=== PATIENT | male | born 1950 | race Caucasian/White ===

== ENCOUNTER 2017-08-02 08:06 | Outpatient (CLI) | payer MEDICARE, SELFPAY | END 2017-08-02 11:36 | PROVIDERS: Family Provider Internal Medicine Adolescent Medicine; Visit Provider Internal Medicine Adolescent Medicine | DX: Z79.01 Long term (current) use of anticoagulants (principal); Z86.718 Personal history of other venous thrombosis and embolism; Z51.81 Encounter for therapeutic drug level monitoring | CPT/HCPCS: 85610; 99211; G0463 ==

== ENCOUNTER 2017-08-23 08:02 | Outpatient (CLI) | payer MEDICARE, SELFPAY ==
[2017-08-23 13:56] LABS: PHA INR Fingerstick 1.7 (0.9-1.1)
== END 2017-08-23 13:59 | disposition home or self-care (01) ==
PROVIDERS: Family Provider Internal Medicine Adolescent Medicine; PCP Internal Medicine Adolescent Medicine; Visit Provider Internal Medicine Adolescent Medicine
DX: Z79.01 Long term (current) use of anticoagulants (principal); Z86.718 Personal history of other venous thrombosis and embolism; Z51.81 Encounter for therapeutic drug level monitoring
CPT/HCPCS: 85610

== ENCOUNTER → 2017-09-11 08:16 | Outpatient (CLI) | payer MEDICARE, SELFPAY ==
[2017-09-11 17:07] LABS: PHA INR Fingerstick 1.9 (0.9-1.1)
== END | disposition home or self-care (01) ==
PROVIDERS: PCP Internal Medicine Adolescent Medicine; Visit Provider Internal Medicine Adolescent Medicine
DX: Z79.01 Long term (current) use of anticoagulants (principal); Z51.81 Encounter for therapeutic drug level monitoring
CPT/HCPCS: 85610; 99211; G0463

== ENCOUNTER → 2017-09-30 08:17 | Outpatient (CLI) | payer MEDICARE, SELFPAY | PROVIDERS: Family Provider Internal Medicine Adolescent Medicine; PCP Internal Medicine Adolescent Medicine; Visit Provider Internal Medicine Adolescent Medicine | DX: Z79.01 Long term (current) use of anticoagulants (principal); Z51.81 Encounter for therapeutic drug level monitoring; Z86.718 Personal history of other venous thrombosis and embolism | CPT/HCPCS: 85610 ==

== ENCOUNTER 2017-10-21 08:14 | Outpatient (CLI) | payer MEDICARE, SELFPAY ==
[2017-10-21 11:51] LABS: PHA INR Fingerstick 1.4 (0.9-1.1)
== END 2017-10-21 12:01 | disposition home or self-care (01) ==
LOC: ACC 08:15
PROVIDERS: PCP Internal Medicine Adolescent Medicine; Visit Provider Internal Medicine Adolescent Medicine
DX: Z79.01 Long term (current) use of anticoagulants (principal); Z51.81 Encounter for therapeutic drug level monitoring; Z86.718 Personal history of other venous thrombosis and embolism
CPT/HCPCS: 85610; 99211; G0463

== ENCOUNTER 2017-11-04 10:28 | Outpatient (CLI) | payer MEDICARE, SELFPAY ==
[2017-11-04 11:12] LABS: PHA INR Fingerstick 1.3 (0.9-1.1)
== END 2017-11-04 11:16 | disposition home or self-care (01) ==
LOC: ACC 10:29
PROVIDERS: PCP Internal Medicine Adolescent Medicine; Visit Provider Internal Medicine Adolescent Medicine
DX: Z79.01 Long term (current) use of anticoagulants (principal); Z51.81 Encounter for therapeutic drug level monitoring
CPT/HCPCS: 85610; 99211; G0463

== ENCOUNTER 2017-11-11 08:32 | Outpatient (CLI) | payer MEDICARE, SELFPAY ==
[2017-11-11 09:33] LABS: INR 1.24 (0.9-1.1); Prothrombin Time 13.4 seconds (9.4-11.8)
[2017-11-11 10:34] LABS: PHA INR Fingerstick 1.4 (0.9-1.1)
== END 2017-11-11 14:45 | disposition home or self-care (01) ==
LOC: ACC 08:33
PROVIDERS: Family Provider Internal Medicine Adolescent Medicine; PCP Internal Medicine Adolescent Medicine; Visit Provider Internal Medicine Adolescent Medicine
DX: Z79.01 Long term (current) use of anticoagulants (principal); Z51.81 Encounter for therapeutic drug level monitoring; Z86.718 Personal history of other venous thrombosis and embolism
CPT/HCPCS: 36415; 85610; 99211; G0463

== ENCOUNTER 2017-11-18 08:14 | Outpatient (CLI) | payer MEDICARE, SELFPAY ==
[2017-11-18 15:45] LABS: PHA INR Fingerstick 1.3 (0.9-1.1)
== END 2017-11-18 15:47 | disposition home or self-care (01) ==
LOC: ACC 08:15
PROVIDERS: PCP Internal Medicine Adolescent Medicine; Visit Provider Internal Medicine Adolescent Medicine
DX: Z79.01 Long term (current) use of anticoagulants (principal); Z51.81 Encounter for therapeutic drug level monitoring; Z86.718 Personal history of other venous thrombosis and embolism
CPT/HCPCS: 85610; 99211; G0463

== ENCOUNTER 2017-11-26 07:59 | Outpatient (CLI) | payer MEDICARE, SELFPAY ==
[2017-11-26 14:26] LABS: PHA INR Fingerstick 1.4 (0.9-1.1)
== END 2017-11-26 14:36 | disposition home or self-care (01) ==
LOC: ACC 08:00
PROVIDERS: PCP Internal Medicine Adolescent Medicine; Visit Provider Internal Medicine Adolescent Medicine
DX: Z79.01 Long term (current) use of anticoagulants (principal); Z51.81 Encounter for therapeutic drug level monitoring; Z86.718 Personal history of other venous thrombosis and embolism
CPT/HCPCS: 85610; 99211; G0463

== ENCOUNTER 2017-12-03 14:39 | Outpatient (CLI) | payer MEDICARE, SELFPAY ==
[2017-12-03 15:30] LABS: PHA INR Fingerstick 1.6 (0.9-1.1)
== END 2017-12-03 15:32 | disposition home or self-care (01) ==
LOC: ACC 14:41
PROVIDERS: Family Provider Internal Medicine Adolescent Medicine; PCP Internal Medicine Adolescent Medicine; Visit Provider Internal Medicine Adolescent Medicine
DX: Z79.01 Long term (current) use of anticoagulants (principal); Z51.81 Encounter for therapeutic drug level monitoring; Z86.718 Personal history of other venous thrombosis and embolism
CPT/HCPCS: 85610; 99211; G0463

== ENCOUNTER 2017-12-13 08:08 | Outpatient (CLI) | payer MEDICARE, SELFPAY ==
[2017-12-13 16:16] LABS: PHA INR Fingerstick 1.9 (0.9-1.1)
== END 2017-12-13 16:29 | disposition home or self-care (01) ==
LOC: ACC 08:08
PROVIDERS: Family Provider Internal Medicine Adolescent Medicine; PCP Internal Medicine Adolescent Medicine; Visit Provider Internal Medicine Adolescent Medicine
DX: Z79.01 Long term (current) use of anticoagulants (principal); Z51.81 Encounter for therapeutic drug level monitoring; Z86.718 Personal history of other venous thrombosis and embolism
CPT/HCPCS: 85610; 99211; G0463

== ENCOUNTER 2017-12-24 08:04 | Outpatient (CLI) | payer MEDICARE, SELFPAY ==
[2017-12-24 14:47] LABS: PHA INR Fingerstick 2.7 (0.9-1.1)
== END 2017-12-24 14:52 | disposition home or self-care (01) ==
LOC: ACC 08:05
PROVIDERS: Family Provider Internal Medicine Adolescent Medicine; PCP Internal Medicine Adolescent Medicine; Visit Provider Internal Medicine Adolescent Medicine
DX: Z79.01 Long term (current) use of anticoagulants (principal); Z51.81 Encounter for therapeutic drug level monitoring; Z86.718 Personal history of other venous thrombosis and embolism
CPT/HCPCS: 85610; 99211; G0463

== ENCOUNTER 2018-01-02 08:31 | Outpatient (CLI) | payer MEDICARE, SELFPAY ==
[2018-01-02 13:31] LABS: PHA INR Fingerstick 2.3 (0.9-1.1)
== END 2018-01-02 13:33 | disposition home or self-care (01) ==
LOC: ACC 08:32
PROVIDERS: PCP Internal Medicine Adolescent Medicine; Visit Provider Internal Medicine Adolescent Medicine
DX: Z79.01 Long term (current) use of anticoagulants (principal); Z51.81 Encounter for therapeutic drug level monitoring; Z86.718 Personal history of other venous thrombosis and embolism
CPT/HCPCS: 85610; 99211; G0463

== ENCOUNTER 2018-01-20 07:49 | Outpatient (CLI) | payer MEDICARE, SELFPAY ==
[2018-01-20 10:21] LABS: PHA INR Fingerstick 2.3 (0.9-1.1)
== END 2018-01-20 10:33 | disposition home or self-care (01) ==
LOC: ACC 07:50
PROVIDERS: PCP Internal Medicine Adolescent Medicine; Visit Provider Internal Medicine Adolescent Medicine
DX: Z79.01 Long term (current) use of anticoagulants (principal); Z86.718 Personal history of other venous thrombosis and embolism
CPT/HCPCS: 85610; 99211; G0463

== ENCOUNTER 2018-02-17 08:04 | Outpatient (CLI) | payer MEDICARE, SELFPAY ==
[2018-02-17 15:08] LABS: PHA INR Fingerstick 2.1 (0.9-1.1)
== END 2018-02-17 15:45 | disposition home or self-care (01) ==
LOC: ACC 08:05
PROVIDERS: PCP Internal Medicine Adolescent Medicine; Visit Provider Internal Medicine Adolescent Medicine
DX: Z79.01 Long term (current) use of anticoagulants (principal); Z51.81 Encounter for therapeutic drug level monitoring; Z86.718 Personal history of other venous thrombosis and embolism
CPT/HCPCS: 85610; 99211; G0463

== ENCOUNTER 2018-03-31 08:02 | Outpatient (CLI) | payer MEDICARE, SELFPAY | END 2018-03-31 09:35 | disposition home or self-care (01) | LOC: ACC 08:03 | PROVIDERS: Family Provider Internal Medicine Adolescent Medicine; PCP Internal Medicine Adolescent Medicine; Visit Provider Internal Medicine Adolescent Medicine | DX: Z79.01 Long term (current) use of anticoagulants (principal); Z86.718 Personal history of other venous thrombosis and embolism | CPT/HCPCS: 85610; 99211; G0463 ==

== ENCOUNTER 2018-05-12 07:56 | Outpatient (CLI) | payer MEDICARE, SELFPAY ==
[2018-05-12 11:28] LABS: PHA INR Fingerstick 2.4 (0.9-1.1)
== END 2018-05-12 11:31 | disposition home or self-care (01) ==
LOC: ACC 07:56
PROVIDERS: Family Provider Internal Medicine Adolescent Medicine; PCP Internal Medicine Adolescent Medicine; Visit Provider Internal Medicine Adolescent Medicine
DX: Z51.81 Encounter for therapeutic drug level monitoring (principal); Z79.01 Long term (current) use of anticoagulants; Z86.718 Personal history of other venous thrombosis and embolism
CPT/HCPCS: 85610; 99211; G0463

== ENCOUNTER 2018-06-23 08:01 | Outpatient (CLI) | payer MEDICARE, SELFPAY ==
[2018-06-23 15:30] LABS: PHA INR Fingerstick 2.4 (0.9-1.1)
== END 2018-06-23 15:34 | disposition home or self-care (01) ==
LOC: ACC 08:01
PROVIDERS: PCP Internal Medicine Adolescent Medicine; Visit Provider Internal Medicine Adolescent Medicine
DX: Z51.81 Encounter for therapeutic drug level monitoring (principal); Z79.01 Long term (current) use of anticoagulants; Z86.718 Personal history of other venous thrombosis and embolism
CPT/HCPCS: 85610; 99211; G0463

== ENCOUNTER 2018-07-31 07:57 | Outpatient (CLI) | payer MEDICARE, SELFPAY ==
[2018-07-31 14:32] LABS: PHA INR Fingerstick 2.1 (0.9-1.1)
== END 2018-07-31 14:34 | disposition home or self-care (01) ==
PROVIDERS: PCP Internal Medicine Adolescent Medicine; Visit Provider Internal Medicine Adolescent Medicine
DX: Z79.01 Long term (current) use of anticoagulants (principal); Z86.718 Personal history of other venous thrombosis and embolism
CPT/HCPCS: 85610; 99211; G0463

== ENCOUNTER 2018-09-08 07:57 | Outpatient (CLI) | payer MEDICARE, SELFPAY ==
[2018-09-08 16:41] LABS: PHA INR Fingerstick 1.7 (0.9-1.1)
== END 2018-09-08 16:51 | disposition home or self-care (01) ==
PROVIDERS: PCP Internal Medicine Adolescent Medicine; Visit Provider Internal Medicine Adolescent Medicine
DX: Z51.81 Encounter for therapeutic drug level monitoring (principal); Z79.01 Long term (current) use of anticoagulants; Z86.718 Personal history of other venous thrombosis and embolism
CPT/HCPCS: 85610; 99211; G0463

== ENCOUNTER 2018-10-06 07:57 | Outpatient (CLI) | payer MEDICARE, SELFPAY | END 2018-10-06 12:52 | disposition home or self-care (01) | LOC: ACC 07:57 | PROVIDERS: PCP Internal Medicine Adolescent Medicine; Visit Provider Internal Medicine Adolescent Medicine | DX: Z51.81 Encounter for therapeutic drug level monitoring (principal); Z79.01 Long term (current) use of anticoagulants; Z86.718 Personal history of other venous thrombosis and embolism | CPT/HCPCS: 85610; 99211; G0463 ==

== ENCOUNTER 2018-11-17 07:54 | Outpatient (CLI) | payer MEDICARE, SELFPAY | END 2018-11-17 15:00 | disposition home or self-care (01) | LOC: ACC 07:54 | PROVIDERS: PCP Internal Medicine Adolescent Medicine; Visit Provider Internal Medicine Adolescent Medicine | DX: Z51.81 Encounter for therapeutic drug level monitoring (principal); Z79.01 Long term (current) use of anticoagulants; Z86.718 Personal history of other venous thrombosis and embolism | CPT/HCPCS: 99211; G0463 ==

== ENCOUNTER 2018-12-29 08:01 | Outpatient (CLI) | payer MEDICARE, SELFPAY | END 2018-12-29 11:01 | disposition home or self-care (01) | LOC: ACC 08:04 | PROVIDERS: PCP Internal Medicine Adolescent Medicine; Visit Provider Internal Medicine Adolescent Medicine | DX: Z51.81 Encounter for therapeutic drug level monitoring (principal); Z79.01 Long term (current) use of anticoagulants | CPT/HCPCS: 99211; G0463 ==

== ENCOUNTER 2019-01-12 07:53 | Outpatient (CLI) | payer MEDICARE, SELFPAY ==
[2019-01-12 10:35] LABS: PHA INR Fingerstick 2.1 (0.9-1.1)
== END 2019-01-12 11:57 | disposition home or self-care (01) ==
LOC: ACC 07:54
PROVIDERS: PCP Internal Medicine Adolescent Medicine; Visit Provider Internal Medicine Adolescent Medicine
DX: Z51.81 Encounter for therapeutic drug level monitoring (principal); Z79.01 Long term (current) use of anticoagulants; Z86.718 Personal history of other venous thrombosis and embolism
CPT/HCPCS: 85610; 99211; G0463

== ENCOUNTER 2019-03-03 08:23 | Outpatient (CLI) | payer MEDICARE, SELFPAY ==
[2019-03-03 09:19] LABS: PHA INR Fingerstick 1.7 (0.9-1.1)
== END 2019-03-03 09:24 | disposition home or self-care (01) ==
LOC: ACC 08:24
PROVIDERS: PCP Internal Medicine Adolescent Medicine; Visit Provider Internal Medicine Adolescent Medicine
DX: Z51.11 Encounter for antineoplastic chemotherapy (principal); Z79.01 Long term (current) use of anticoagulants; Z86.718 Personal history of other venous thrombosis and embolism
CPT/HCPCS: 85610; 99211; G0463

== ENCOUNTER 2019-03-23 08:02 | Outpatient (CLI) | payer MEDICARE, SELFPAY ==
[2019-03-23 10:44] LABS: PHA INR Fingerstick 1.9 (0.9-1.1)
== END 2019-03-23 10:46 | disposition home or self-care (01) ==
LOC: ACC 08:03
PROVIDERS: PCP Internal Medicine Adolescent Medicine; Visit Provider Internal Medicine Adolescent Medicine
DX: Z51.81 Encounter for therapeutic drug level monitoring (principal); Z79.01 Long term (current) use of anticoagulants
CPT/HCPCS: 85610; 99211; G0463

== ENCOUNTER 2019-04-23 07:54 | Outpatient (CLI) | payer MEDICARE, SELFPAY ==
[2019-04-23 10:29] LABS: PHA INR Fingerstick 2.1 (0.9-1.1)
== END 2019-04-23 10:30 | disposition home or self-care (01) ==
LOC: ACC 07:55
PROVIDERS: PCP Internal Medicine Adolescent Medicine; Visit Provider Internal Medicine Adolescent Medicine
DX: Z51.81 Encounter for therapeutic drug level monitoring (principal); Z79.01 Long term (current) use of anticoagulants; Z86.718 Personal history of other venous thrombosis and embolism
CPT/HCPCS: 85610; 99211; G0463

== ENCOUNTER 2019-05-21 08:12 | Outpatient (CLI) | payer MEDICARE, SELFPAY ==
[2019-05-21 11:57] LABS: PHA INR Fingerstick 2.4 (0.9-1.1)
== END 2019-05-21 14:14 | disposition home or self-care (01) ==
PROVIDERS: PCP Internal Medicine Adolescent Medicine; Visit Provider Internal Medicine Adolescent Medicine
DX: Z51.81 Encounter for therapeutic drug level monitoring (principal); Z79.01 Long term (current) use of anticoagulants; Z86.718 Personal history of other venous thrombosis and embolism
CPT/HCPCS: 85610; 99211; G0463

== ENCOUNTER 2019-07-03 14:30 | Outpatient (CLI) | payer MEDICARE, SELFPAY ==
[2019-07-03 15:16] LABS: PHA INR Fingerstick 2.1 (0.9-1.1)
== END 2019-07-03 15:21 | disposition home or self-care (01) ==
LOC: ACC 14:32
PROVIDERS: PCP Internal Medicine Adolescent Medicine; Visit Provider Internal Medicine Adolescent Medicine
DX: Z51.81 Encounter for therapeutic drug level monitoring (principal); Z79.01 Long term (current) use of anticoagulants
CPT/HCPCS: 85610; 99211; G0463

== ENCOUNTER 2019-08-28 08:31 | Outpatient (CLI) | payer MEDICARE, SELFPAY ==
[2019-08-28 11:23] LABS: PHA INR Fingerstick 2.1 (0.9-1.1)
== END 2019-08-28 12:01 | disposition home or self-care (01) ==
LOC: ACC 08:32
PROVIDERS: PCP Internal Medicine Adolescent Medicine; Visit Provider Internal Medicine Adolescent Medicine
DX: Z51.81 Encounter for therapeutic drug level monitoring (principal); Z79.01 Long term (current) use of anticoagulants
CPT/HCPCS: 85610; 99211; G0463

== ENCOUNTER → 2019-10-09 08:04 | Outpatient (CLI) | payer MEDICARE, SELFPAY ==
[2019-10-09 09:12] LABS: Basophils % 0.9 % (0.1-2.0); Eosinophils # 0.1 K/mm3 (0.0-0.4); Eosinophils % 3.1 % (0.1-12.0); Hematocrit 47.9 % (42.0-52.0); Hemoglobin 15.9 g/dL (14.1-18.0); Lymphocytes # 1.5 K/mm3 (0.7-4.5); Lymphocytes % 33.5 % (10-50); Mean Corpuscular HGB Conc 33.2 g/dL (31.8-35.4); Mean Corpuscular Hemoglobin 32.5 pg (27.0-31.2); Mean Platelet Volume 7.7 fl (7.4-10.4); Monocytes # 0.3 K/mm3 (0.1-1.0); Monocytes % 6.2 % (1.7-9.3); Neutrophils # 2.6 K/mm3 (1.8-7.8); Neutrophils % 56.4 % (37.0-80.0); Platelet Count 204 K/mm3 (142-424); Red Blood Count 4.89 M/mm3 (4.60-6.20); White Blood Count 4.6 K/mm3 (4.8-10.8)
[2019-10-09 09:23] LABS: INR 1.98 (0.9-1.1); Prothrombin Time 19.9 seconds (9.4-11.8)
[2019-10-09 10:47] LABS: Alanine Aminotransferase 34 U/L (12-78); Albumin Level 4.2 g/dl (3.5-5.0); Albumin/Globulin Ratio 1.7 (1.1-1.8); Alkaline Phosphatase 67 U/L (38-126); Anion Gap 11.4 mEq/L (5-15); Aspartate Amino Transferase 37 U/L (17-59); Bilirubin,Total 0.5 mg/dl (0.2-1.3); Blood Urea Nitrogen 11 mg/dl (9-20); Calcium 9.4 mg/dl (8.4-10.2); Carbon Dioxide 30 mmol/L (22.0-30.0); Chloride 101 mmol/L (98-107); Chol/HDL Ratio 3.1 (1-3.5); Cholesterol 125 mg/dl (140-200); Estimated Glomerular Filt Rate 112 ml/min (>60); GFR (African American) 135 ML/MIN (>60); Globulin 2.5 g/dL (1.3-3.2); Glucose 144 mg/dl (74-100); HDL Cholesterol 40 mg/dl (40-60); Potassium 4.4 mmoL/L (3.5-5.1); Sodium 138 mmol/L (136-145); Total Protein,Serum 6.7 g/dl (6.3-8.2); Triglycerides 131 mg/dl (30-150); VLDL Cholesterol 26 mg/dL (0-40)
[2019-10-09 10:57] LABS: Direct LDL Cholesterol 73.12 mg/dL (100-129)
[2019-10-09 11:18] LABS: Prostate Specific Ag, Diagnost 4.34 ng/ml (0.0-4.0)
== END ==
PROVIDERS: PCP Internal Medicine Adolescent Medicine; Visit Provider Internal Medicine Adolescent Medicine
DX: E78.5 Hyperlipidemia, unspecified (principal); I48.20 Chronic atrial fibrillation, unspecified; N40.1 Benign prostatic hyperplasia with lower urinary tract symptoms; Z51.81 Encounter for therapeutic drug level monitoring; Z79.01 Long term (current) use of anticoagulants
CPT/HCPCS: 36415; 80053; 80061; 84153; 85025; 85610

== ENCOUNTER → 2019-10-21 08:21 | Outpatient (CLI) | payer MEDICARE, SELFPAY ==
[2019-10-21 11:17] LABS: Hemoglobin A1C 6.9 % (4.0-6.0)
== END ==
PROVIDERS: Visit Provider Internal Medicine Adolescent Medicine
DX: R73.9 Hyperglycemia, unspecified (principal)
CPT/HCPCS: 36415; 83036

== ENCOUNTER 2019-12-04 14:54 | Outpatient (CLI) | payer MEDICARE, SELFPAY ==
[2019-12-04 15:46] LABS: PHA INR Fingerstick 2.8 (0.9-1.1)
== END 2019-12-04 15:49 | disposition home or self-care (01) ==
LOC: ACC 14:56
PROVIDERS: PCP Internal Medicine Adolescent Medicine; Visit Provider Internal Medicine Adolescent Medicine
DX: Z51.81 Encounter for therapeutic drug level monitoring (principal); Z79.01 Long term (current) use of anticoagulants
CPT/HCPCS: 85610; 99211; G0463

== ENCOUNTER 2020-02-02 13:04 | Outpatient (CLI) | payer MEDICARE, SELFPAY ==
[2020-02-02 15:00] LABS: PHA INR Fingerstick 2.7 (0.9-1.1)
== END 2020-02-02 15:02 | disposition home or self-care (01) ==
LOC: ACC 13:05
PROVIDERS: PCP Internal Medicine Adolescent Medicine; Visit Provider Internal Medicine Adolescent Medicine
DX: Z79.01 Long term (current) use of anticoagulants (principal)
CPT/HCPCS: 85610; 99211; G0463

== ENCOUNTER 2020-03-17 12:55 | Outpatient (CLI) | payer MEDICARE, SELFPAY ==
[2020-03-17 14:19] LABS: PHA INR Fingerstick 1.9 (0.9-1.1)
== END 2020-03-17 14:25 | disposition home or self-care (01) ==
PROVIDERS: PCP Internal Medicine Adolescent Medicine; Visit Provider Internal Medicine Adolescent Medicine
DX: Z51.81 Encounter for therapeutic drug level monitoring (principal); Z79.01 Long term (current) use of anticoagulants; I48.91 Unspecified atrial fibrillation
CPT/HCPCS: 85610; 99211; G0463